=== PATIENT | female | born 1935 | race American Indian/Alaskan Native ===

== ENCOUNTER 2021-02-17 04:16 | Emergency (ER) | payer MEDICAID ==
[2021-02-17] MEDS ORDERED: DEXTROSE 50% IN WATER (25GM) 50 ML SYRINGE IV ONE ×2 (04:42→04:46)
--- NOTE | 2021-02-17 04:48 | Emergency Department Report ---
ED General Adult HPI - General Chief complaint: Hypoglycemia Stated complaint: HYPOGLYCEMIA Time Seen by Provider: 02/17/21 04:42 Source: family, EMS Mode of arrival: Stretcher Limitations: Altered Mental Status - History of Present Illness Initial comments: Presents to ER with hypoglycemia, found unresponsive at home, when EMS arrived glucose was in the 40s. Patient was given d50 and symptoms improved. Daughter states patient took her levimir without eating last night. - Related Data Home Medications Medication Instructions Recorded Confirmed Last Taken Amlodipine Besylate/Benazepril 1 cap PO QDAY 06/07/14 06/07/14 06/07/14 [Amlodipine-Benazepril 2.5-10 mg] Brimonidine Tartrate [Brimonidine 1 drop OU Q8HR 06/07/14 06/07/14 06/07/14 Tartrate 0.2%] Folic Acid [Folvite] 1 mg PO QDAY 06/07/14 06/07/14 06/07/14 Hydralazine HCl [Apresoline TAB] 50 mg PO TID 06/07/14 06/07/14 06/07/14 Insulin Glargine,Hum.rec.anlog 30 unit SQ QDAY 06/07/14 06/07/14 06/07/14 [Lantus Solostar] Latanoprost 0.005% [Xalatan 0.005%] 1 drop OP QPM 06/07/14 06/07/14 06/07/14 Allergies Allergy/AdvReac Type Severity Reaction Status Date / Time No Known Allergies Allergy Unverified 06/07/14 15:33 ED Review of Systems ROS: Stated complaint: HYPOGLYCEMIA Other details as noted in HPI Comment: All other systems reviewed and negative Constitutional: denies: chills, fever Eyes: denies: eye pain, eye discharge, vision change ENT: denies: ear pain, throat pain Respiratory: denies: cough, shortness of breath, wheezing Cardiovascular: denies: chest pain, palpitations Endocrine: no symptoms reported Gastrointestinal: denies: abdominal pain, nausea, diarrhea Genitourinary: denies: urgency, dysuria, discharge Musculoskeletal: denies: back pain, joint swelling, arthralgia Skin: denies: rash, lesions Neurological: denies: headache, weakness, paresthesias Psychiatric: denies: anxiety, depression Hematological/Lymphatic: denies: easy bleeding, easy bruising ED Past Medical Hx - Past Medical History Previous Medical History?: Yes Hx Hypertension: Yes Hx Diabetes: Yes - Social History Smoking Status: Never Smoker Substance Use Type: None - Medications Home Medications: Home Medications Medication Instructions Recorded Confirmed Last Taken Type Amlodipine Besylate/Benazepril 1 cap PO QDAY 06/07/14 06/07/14 06/07/14 History [Amlodipine-Benazepril 2.5-10 mg] Brimonidine Tartrate [Brimonidine 1 drop OU Q8HR 06/07/14 06/07/14 06/07/14 Hi story Tartrate 0.2%] Folic Acid [Folvite] 1 mg PO QDAY 06/07/14 06/07/14 06/07/14 History Hydralazine HCl [Apresoline TAB] 50 mg PO TID 06/07/14 06/07/14 06/07/14 History Insulin Glargine,Hum.rec.anlog 30 unit SQ QDAY 06/07/14 06/07/14 06/07/14 History [Lantus Solostar] Latanoprost 0.005% [Xalatan 0.005%] 1 drop OP QPM 06/07/14 06/07/14 06/07/14 History ED Physical Exam - General Limitations: Altered Mental Status - Head Head exam: Present: atraumatic, normocephalic - Eye Eye exam: Present: normal appearance, PERRL, EOMI - ENT ENT exam: Present: normal exam - Neck Neck exam: Present: normal inspection - Respiratory Respiratory exam: Present: normal lung sounds bilaterally - Cardiovascular Cardiovascular Exam: Present: regular rate, normal rhythm - GI/Abdominal GI/Abdominal exam: Present: soft - Extremities Exam Extremities exam: Present: normal inspection - Back Exam Back exam: Present: normal inspection - Neurological Exam Neurological exam: Present: alert, oriented X3 ED Course Vital Signs 02/17/21 06:04 Pulse Rate 67 Respiratory 12 Rate Blood Pressure 140/76 [Right] O2 Sat by Pulse 98 Oximetry ED Medical Decision Making - Lab Data Result diagrams: 02/17/21 05:02 02/17/21 05:02 Critical care attestation.: If time is entered above; I have spent that time in minutes in the direct care of this critically ill patient, excluding procedure time. ED Disposition Clinical Impression: Hypoglycemia due to insulin Disposition: DC-01 TO HOME OR SELFCARE Is pt being admited?: No Does the pt Need Aspirin: No Condition: Stable Instructions: Hypoglycemia Referrals: BETI VERNON MD [Primary Care Provider] - 3-5 Days
[2021-02-17 05:27] LABS: Basophils % (Auto) 0.7 % (0.0-1.8); Eosinophils % (Auto) 0.5 % (0.0-4.3); Hematocrit 31.8 % (30.3-42.9); Hemoglobin 10.3 gm/dl (10.1-14.3); Lymphocytes # (Auto) 1.2 K/mm3 (1.2-5.4); Mean Corpuscular HGB Conc 33 % (30-34); Mean Corpuscular Volume 88 fl (79-97); Monocytes # (Auto) 0.4 K/mm3 (0.0-0.8); Monocytes % (Auto) 7.2 % (0.0-7.3); Red Blood Count 3.61 M/mm3 (3.65-5.03); Red Cell Distribution Width 16.2 % (13.2-15.2)
[2021-02-17 05:31] LABS: Platelet Count 98 K/mm3 (140-440)
[2021-02-17 05:53] LABS: Albumin 4.2 g/dL (3.9-5); Calcium 9.2 mg/dL (8.4-10.2)
[2021-02-17 06:05] VITALS: BP 140/76
== END 2021-02-17 06:05 | disposition home or self-care (01) ==
LOC: ED 04:16
DX: E11.649 Type 2 diabetes mellitus with hypoglycemia without coma (principal); I10 Essential (primary) hypertension; Z79.4 Long term (current) use of insulin; Z79.899 Other long term (current) drug therapy
CPT/HCPCS: 36415; 80053; 82962; 85025; 96374